=== PATIENT | male | born 1990 | race Asian ===

== ENCOUNTER 2022-09-27 15:11 | Emergency (ER) | payer OTHER ==
--- NOTE | 2022-09-27 16:17 | ED Physician Documentation ---
PD HPI SEIZURE - Stated complaint Stated Complaint: SYNCOPE - Chief complaint Chief Complaint: Neuro - History obtained from History obtained from: Patient, EMS - History of Present Illness Timing - onset: How many hours ago (1) Witnessed: Witnessed Number of seizures: Lasted minutes (3-5) Description of seizure activity: Generalized, Tonic clonic Injury during seizure: None Pain level max: 0 Pain level now: 0 Associated symptoms: No: Headache, Vision changes, Chest pain, Palpitations, Diaphoresis, Dyspnea, Nausea / vomiting History of seizures: Other (states that they thought he may have had a seizure in jun 2022, has not seen neurology yet.) Contributing factors: No: Off meds, Out of meds, Changed meds, Low blood sugar, Head injury, Substance abuse, EtOH withdrawal, Benzo withdrawal, Overdose, Fever, Sleep deprivation Treatment GLASS INSTALLER TECHNICIAN: Other (none) - Additional information Additional information: 32-year-old male presents to the emergency department with seizure activity today at work. Coworker states that he was repetitive with his words, he is on slumped in his chair, went stiff they lowered him to the ground and he began seizing for approximately 3 to 5 minutes. It sounds as if he was postictal for about 10 minutes. Currently he is back to his baseline. No injuries. No fevers. No chills. No sepsis. Denies any drug use. No caffeine use. Review of Systems Constitutional: denies: Fever, Chills Nose: denies: Rhinorrhea / runny nose, Congestion Throat: denies: Sore throat Cardiac: denies: Chest pain / pressure, Palpitations Respiratory: denies: Dyspnea, Cough, Wheezing GI: denies: Abdominal Pain, Nausea, Vomiting, Diarrhea : denies: Incontinent Skin: denies: Rash Musculoskeletal: denies: Neck pain, Back pain Neurologic: denies: Focal weakness, Numbness, Headache, Head injury, LOC PD PAST MEDICAL HISTORY - Past Medical History Past Medical History: No - Past Surgical History Past Surgical History: No - Living Situation Living Arrangement: reports: At home - Social History Does the pt have substance abuse?: No - Family History Family history: reports: Non contributory PD ED PE NORMAL - Vitals Vital signs reviewed: Yes - General General: Alert and oriented X 3, No acute distress, Well developed/nourished - HEENT HEENT: Atraumatic, PERRL, Ears normal, Moist mucous membranes, Pharynx benign - Neck Neck: Supple, no meningeal sign, No bony TTP - Cardiac Cardiac: RRR, Strong equal pulses - Respiratory Respiratory: No respiratory distress, Clear bilaterally - Abdomen Abdomen: Soft, Non tender, Non distended - Back Back: No CVA TTP, No spinal TTP - Derm Derm: Warm and dry, No rash - Extremities Extremities: No edema, No calf tenderness / cord - Neuro Neuro: Alert and oriented X 3, manager administrative services 2-12 intact, No motor deficit, No sensory deficit, Normal speech Eye Opening: Spontaneous Motor: Obeys Commands Verbal: Oriented GCS Score: 15 - Psych Psych: Normal mood, Normal affect Results - Vitals Vitals: Vital Signs - 24 hr 09/27/22 09/27/22 09/27/22 15:18 16:46 17:37 Temperature 36.4 C L Heart Rate 76 70 73 Respiratory 16 16 16 Rate Blood Pressure 127/55 L 156/93 H 156/88 H O2 Saturation 99 99 100 Oxygen O2 Source Room air - EKG (time done) 1519 EKG releavant findings:: EKG personally interpreted by author of this note. Relevant findings are: Rate: Rate (enter#) (71) Rhythm: NSR [place]: Normal Intervals: Normal ME QRS: Normal Ischemia: Normal ST segments - Labs Labs: Laboratory Tests 09/27/22 09/27/22 09/27/22 15:21 15:21 15:21 WBC 8.0 RBC 5.11 Hgb 15.5 Hct 46.7 MCV 91.4 MCH 30.3 MCHC 33.2 RDW 12.1 Plt Count 307 MPV 9.7 Neut # (Auto) 4.5 Lymph # (Auto) 3.1 [place] # (Auto) 0.3 Eos # (Auto) 0.1 Baso # (Auto) 0.0 Absolute Nucleated RBC 0.00 Nucleated RBC % 0.0 Sodium 134 L Potassium 3.8 Chloride 100 L Carbon Dioxide 20 L Anion Gap 14.0 H BUN 16 Creatinine 1.1 Estimated GFR (MDRD) 77 L Glucose 156 H Calcium 9.5 Total Bilirubin 0.7 AST 41 ALT 35 Alkaline Phosphatase 82 Total Protein 8.4 H Albumin 4.5 Globulin 3.9 Albumin/Globulin Ratio 1.2 Lipase 30 TSH 4.02 Urine Color Urine Clarity Urine pH Ur Specific [place] Urine Protein Urine Glucose (UA) Urine Ketones Urine Occult Blood Urine Nitrite Urine Bilirubin Urine Urobilinogen Ur Leukocyte Esterase Urine RBC Urine WBC Ur Squamous Epith Cells Urine Bacteria Urine Mucus Ur Microscopic Review Urine Culture Comments Salicylates < 6.0 Urine Opiates Screen Ur Oxycodone Screen Urine Methadone Screen Ur Propoxyphene Screen Acetaminophen < 10 L Ur Barbiturates Screen Ur Tricyclics Screen Ur Phencyclidine Scrn Ur Amphetamine Screen U Methamphetamines Scrn U Benzodiazepines Scrn Urine Cocaine Screen U Cannabinoids Screen Ethyl Alcohol < 5.0 09/27/22 16:39 WBC RBC Hgb Hct MCV MCH MCHC RDW Plt Count MPV Neut # (Auto) Lymph # (Auto) [place] # (Auto) Eos # (Auto) Baso # (Auto) Absolute Nucleated RBC Nucleated RBC % Sodium Potassium Chloride Carbon Dioxide Anion Gap BUN Creatinine Estimated GFR (MDRD) Glucose Calcium Total Bilirubin AST ALT Alkaline Phosphatase Total Protein Albumin Globulin Albumin/Globulin Ratio Lipase TSH Urine Color YELLOW Urine Clarity CLEAR Urine pH 6.0 Ur Specific [place] >=1.030 H Urine Protein 30 H Urine Glucose (UA) NEGATIVE Urine Ketones NEGATIVE Urine Occult Blood SMALL H Urine Nitrite NEGATIVE Urine Bilirubin NEGATIVE Urine Urobilinogen 0.2 (NORMAL) Ur Leukocyte Esterase NEGATIVE Urine RBC 0-5 Urine WBC 0-3 Ur Squamous Epith Cells RARE Squamous Urine Bacteria Rare Urine Mucus Few Strands Ur Microscopic Review INDICATED Urine Culture Comments NOT INDICATED Salicylates Urine Opiates Screen NEGATIVE Ur Oxycodone Screen NEGATIVE Urine Methadone Screen NEGATIVE Ur Propoxyphene Screen NEGATIVE Acetaminophen Ur Barbiturates Screen NEGATIVE Ur Tricyclics Screen NEGATIVE Ur Phencyclidine Scrn NEGATIVE Ur Amphetamine Screen NEGATIVE U Methamphetamines Scrn NEGATIVE U Benzodiazepines Scrn NEGATIVE Urine Cocaine Screen NEGATIVE U Cannabinoids Screen NEGATIVE Ethyl Alcohol - Rads (name of study) CT head Relevant Findings:: Final report received, See rad report PD Medical Decision Making - ED course Complexity details: reviewed results, re-evaluated patient, considered differential, d/w patient ED course: Patient with what sounds like a new onset seizure today at work. He denies any caffeine, stimulants, drugs. Head CT does not show any significant abnormalities. Very minimal hyponatremia. Urinalysis does not show any acute abnormalities. History sounds very consistent with a seizure. We [place] and neurology referral. It sounds as if he had an episode of potentially altered mental status back in June at [facility], but did not have necessarily seizure activity. Therefore we will hold off on antiepileptics at this time until he can receive his EEG and follow-up with neurology. I would consider starting antiepileptics if he has another seizure. Patient counseled regarding signs and symptoms for which I believe and urgent re-evaluation would be necessary. Patient with good understanding of and agreement to plan and is comfortable going home at this time This document was made in part using voice recognition software. While efforts are made to proofread this document, sound alike and grammatical errors may occur. Departure - Departure Disposition: Home, Self Care Clinical Impression: Seizure Condition: Good Instructions: Epilepsy Seizures Follow-Up: SHANICE Coronel [Provider Group] - Within 1 week Comments: Your head CT does not show any acute abnormalities. Your EKG does not show any acute abnormalities. Your laboratory testing shows a normal complete blood count, no significant abnormalities on your chemistries. Your urinalysis is consistent with mild dehydration, make sure you are drinking enough fluids. And your toxicology screens are negative. Based on your history today it sounds as if you had a 3 to 5-minute generalized tonic-clonic seizure. It is important [place] 2 [place]. You will need a referral to a neurologist as well as an EEG and MRI of your brain. Do not drive until released by your doctor. You should also avoid being in water that you can submerge yourself in until released by your doctor as well. Please return if you worsen Discharge Date/Time: 09/27/22 17:43
[2022-09-27 16:18] LABS: BASOPHILS % (AUTO) 0.4 %; EOSINOPHILS # (AUTO) 0.1 10^3/uL (0.0-0.7); EOSINOPHILS % (AUTO) 0.6 %; HCT - HEMATOCRIT 46.7 % (42.0-52.0); HGB - HEMOGLOBIN 15.5 g/dL (14.0-18.0); LYMPHOCYTES # (AUTO) 3.1 10^3/uL (1.5-3.5); LYMPHOCYTES % (AUTO) 38.4 %; MEAN CORPUSCULAR HEMOGLOBIN 30.3 pg (27.0-31.0); MEAN CORPUSCULAR HGB CONC 33.2 g/dL (32.0-36.0); MEAN CORPUSCULAR VOLUME 91.4 fL (80.0-94.0); MEAN PLATELET VOLUME 9.7 fL (7.4-11.4); MONOCYTES # (AUTO) 0.3 10^3/uL (0.0-1.0); MONOCYTES % (AUTO) 4.2 %; NEUTROPHILS # (AUTO) 4.5 10^3/uL (1.5-6.6); NEUTROPHILS % (AUTO) 55.9 %; PLT - PLATELET COUNT 307 10^3/uL (130-450); RED BLOOD COUNT 5.11 10^6/uL (4.70-6.10); RED CELL DISTRIBUTION WIDTH 12.1 % (12.0-15.0)
--- NOTE | 2022-09-27 16:35 | CT Report ---
PROCEDURE: HEAD WO INDICATIONS: new onset seizure TECHNIQUE: Noncontrast 4.5 mm thick angled axial sections acquired from the foramen magnum to the vertex. For r adiation dose reduction, the following was used: automated exposure control, adjustment of mA and/or kV according to patient size. COMPARISON: None. FINDINGS: Image quality: Excellent. CSF spaces: Basal cisterns are patent. No extra-axial fluid collections. Ventricles are normal in size and shape. Brain: No midline shift. No intracranial masses or hemorrhage. Payne-white matter interface is norm al. Skull and face: Calvarium and visualized facial bones are intact, without suspicious lesions. Sinuses: Visualized sinuses and mastoids are clear. IMPRESSION: No acute intracranial abnormality. Consider MRI with and without contrast for follow-up evaluation. Reviewed by: Osman Wilkinson MD on 09/27/2022 4:33 PM PDT Approved by: Osman Wilkinson MD on 09/27/2022 4:33 PM PDT Station ID: [id number]
[2022-09-27 16:42] LABS: ACETAMINOPHEN < 10 ug/mL (10-30); ALBUMIN 4.5 g/dL (3.2-5.5); ALBUMIN/GLOBULIN RATIO 1.2 (1.0-2.2); ALKALINE PHOSPHATASE 82 IU/L (42-121); ALT ALANINE AMINOTRANSFERASE 35 IU/L (10-60); AST ASPARTATE AMINOTRANSFERASE 41 IU/L (10-42); BILIRUBIN,TOTAL 0.7 mg/dL (0.2-1.0); BUN - BLOOD UREA NITROGEN 16 mg/dL (6-20); CALCIUM 9.5 mg/dL (8.5-10.3); CARBON DIOXIDE - CO2 20 mmol/L (21-32); CHLORIDE 100 mmol/L (101-111); CREATININE 1.1 mg/dL (0.6-1.2); ETOH - ETHANOL < 5.0 mg/dL; GFR - MDRD 77 (>89); GLUCOSE 156 mg/dL (70-100); LIPASE 30 U/L (22-51); POTASSIUM 3.8 mmol/L (3.5-5.0); SALICYLATE < 6.0 mg/dL; SODIUM 134 mmol/L (135-145); TOTAL PROTEIN 8.4 g/dL (6.7-8.2)
[2022-09-27 16:45] LABS: MUDS CUTOFF CONCENTRATIONS CUTOFF CONC BELOW:
[2022-09-27 16:47] LABS: BILIRUBIN,URINE NEGATIVE (NEGATIVE); GLUCOSE, URINE (UA) NEGATIVE (NEGATIVE); KETONES,URINE (UA) NEGATIVE (NEGATIVE); LEUKOCYTE ESTERASE, URINE NEGATIVE (NEGATIVE); NITRITE,URINE NEGATIVE (NEGATIVE); OCCULT BLOOD,URINE SMALL (NEGATIVE); PROTEIN,URINE 30 mg/dL (NEGATIVE); UROBILINOGEN,URINE 0.2 (NORMAL) E.U./dL (NORMAL)
[2022-09-27 16:49] LABS: CLARITY,URINE CLEAR (CLEAR)
[2022-09-27 16:57] LABS: AMPHETAMINE SCREEN,URINE NEGATIVE (NEGATIVE); BARBITURATE SCREEN,UR NEGATIVE (NEGATIVE); BENZODIAZEPINES SCREEN, URINE NEGATIVE (NEGATIVE); COCAINE SCREEN URINE NEGATIVE (NEGATIVE); METHADONE SCREEN, URINE NEGATIVE (NEGATIVE); METHAMPHETAMINES SCREEN, URINE NEGATIVE (NEGATIVE); OPIATE SCREEN, URINE NEGATIVE (NEGATIVE); OXYCODONE SCREEN, URINE NEGATIVE (NEGATIVE); PROPOXYPHENE SCREEN, URINE NEGATIVE (NEGATIVE); THC CANNABINOID SCREEN, URINE NEGATIVE (NEGATIVE); TRICYCLIC ANTIDEPRESSANT,URINE NEGATIVE (NEGATIVE)
[2022-09-27 16:59] LABS: BACTERIA,URINE Rare /HPF (None Seen); MUCUS,URINE Few Strands; RBC,URINE 0-5 /HPF (0-5); SQUAMOUS EPITHELIAL CELL,UR RARE Squamous (<= Few); WBC,URINE 0-3 /HPF (0-3)
[2022-09-27 17:38] VITALS: BP 156/88
== END 2022-09-27 17:43 | disposition home or self-care (01) ==
LOC: ED 15:11
DX: R56.9 Unspecified convulsions (principal); E86.0 Dehydration
CPT/HCPCS: 36415; 80053; 80306; 80307; 80320; 80329; 81001; 81003; 83690; 84443; 85025; 87086; 93005; 99284

== ENCOUNTER 2022-11-06 07:13 | Outpatient (CLI) | payer OTHER | END 2022-11-06 23:59 | disposition critical access hospital (66) | LOC: EMS 07:13 | DX: R56.9 Unspecified convulsions (principal) | CPT/HCPCS: A0425; A0429 ==

== ENCOUNTER 2022-11-06 07:32 | Emergency (ER) | payer OTHER ==
--- NOTE | 2022-11-06 07:54 | ED Physician Documentation ---
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 He had a seizure reportedly 2 months ago with negative ED work-up. Subsequently he was started on Keppra. Saw a neurologist last week in [place], Dr. Chandler who did a EEG that was reportedly normal and stopped his Keppra, that was about 4 days ago. Today he felt a brief rash in the back of his head and then had tonic- clonic seizure activity witnessed by his roommate with about 5 minutes of postictal period. Post seizure had a tongue laceration. He feels fine now. PD PAST MEDICAL HISTORY - Past Medical History Past Medical History: Yes Cardiovascular: Hypertension Neuro: Seizure disorder - Past Surgical History Past Surgical History: No - Present Medications Home Medications: Ambulatory Orders Medication Instructions Recorded Confirmed Levetiracetam [Keppra] 500 mg PO BID #60 tablet 11/06/22 - Allergies Allergies/Adverse Reactions: Allergies Allergy/AdvReac Type Severity Reaction Status Date / Time No Known Drug Allergies Allergy Verified 11/06/22 08:10 - Social History Does the pt smoke?: No Smoking Status: Never smoker Does the pt drink ETOH?: No Does the pt have substance abuse?: No - Immunizations Immunizations are current?: Yes PD ED PE NORMAL - Vitals Vital signs reviewed: Yes - General General: Alert and oriented X 3, No acute distress - HEENT HEENT: PERRL, EOMI, Dentition benign, Other (Abrasion/contusion to the right mid tongue) - Neck Neck: Supple, no meningeal sign, No bony TTP - Cardiac Cardiac: RRR, No murmur - Respiratory Respiratory: No respiratory distress, Clear bilaterally - Abdomen Abdomen: Non tender - Neuro Neuro: Alert and oriented X 3, youth associate 2-12 intact, No motor deficit, No sensory deficit, Normal speech Eye Opening: Spontaneous Motor: Obeys Commands Verbal: Oriented GCS Score: 15 Results - Vitals Vitals: Vital Signs - 24 hr 11/06/22 11/06/22 07:45 09:30 Temperature 36.6 C Heart Rate 81 72 Respiratory 19 19 Rate Blood Pressure 147/87 H 145/92 H O2 Saturation 98 100 Oxygen O2 Source Room air PD Medical Decision Making - ED course ED course: 32-year-old gentleman with now recurrent seizures having stopped his Keppra a few days ago on the advice of his neurologist now had recurrent seizure today. We tried for several hours to get a hold of his neurologist without any luck. He is asymptomatic here. Seems reasonable to restart his Keppra pending follow- up with his neurologist. Departure - Departure Disposition: 01 Home, Self Care Clinical Impression: Seizure Condition: Good Record reviewed to determine appropriate education?: Yes Instructions: ED Seizure Recurrent Prescriptions: Levetiracetam [Keppra] 500 mg PO BID #60 tablet Comments: As discussed, we were unable to get a hold of your neurologist today despite several phone calls. Seems reasonable to restart your Keppra pending follow-up with him. Continue to not drive until 6 months seizure-free or is it is it is advised it is safe to do so by the neurologist. Also avoid other activities that would be dangerous if you were to have a seizure such as climbing ladders, swimming, or operating heavy machinery. Please update your flight surgeon and follow-up after this ED visit as well.
[2022-11-06 09:53] VITALS: BP 145/92
[2022-11-06] MEDS: levETIRAcetam 250 MG TABLET PO STA (10:10)
== END 2022-11-06 10:14 | disposition home or self-care (01) ==
LOC: ED 07:32
DX: R56.9 Unspecified convulsions (principal); I10 Essential (primary) hypertension
CPT/HCPCS: 99283; A9270

== ENCOUNTER 2022-12-16 14:45 | Outpatient (CLI) | payer OTHER | END 2022-12-16 14:46 | disposition critical access hospital (66) | LOC: EMS 14:45 | DX: R56.9 Unspecified convulsions (principal) | CPT/HCPCS: A0425; A0429 ==

== ENCOUNTER 2022-12-16 15:04 | Emergency (ER) | payer OTHER ==
--- NOTE | 2022-12-16 15:10 | ED Physician Documentation ---
History of Present Illness - Stated complaint Stated Complaint: SEIZURE - History obtained from History obtained from: Patient, EMS - Additonal information Additional information: 32-year-old gentleman with uncontrolled seizure disorder, last seizure November 06. On that visit his neurologist had stopped his Keppra a few days before after a negative EEG. Now he has been on Keppra 5 mg twice a day. His roommates found him to have a tonic-clonic seizure today. He did bite his tongue on the right side. No other injuries. He was postictal but now feeling better. He is nauseous but declines nausea medicine. PD PAST MEDICAL HISTORY - Past Medical History Cardiovascular: Hypertension Neuro: Seizure disorder - Past Surgical History Past Surgical History: No - Present Medications Home Medications: Ambulatory Orders Medication Instructions Recorded Confirmed Levetiracetam [Keppra] 500 mg PO BID #60 tablet 11/06/22 Levetiracetam [Keppra] 1,000 mg PO BID #60 tablet 12/16/22 - Allergies Allergies/Adverse Reactions: Allergies Allergy/AdvReac Type Severity Reaction Status Date / Time No Known Drug Allergies Allergy Verified 12/16/22 15:13 - Social History Does the pt smoke?: No Smoking Status: Never smoker Does the pt drink ETOH?: No Does the pt have substance abuse?: No - Immunizations Immunizations are current?: Yes PD ED PE NORMAL - Vitals Vital signs reviewed: Yes - General General: Alert and oriented X 3, No acute distress - HEENT HEENT: PERRL, EOMI, Other (There is a large abrasion/laceration to the right side of the tongue) - Neck Neck: Supple, no meningeal sign, No bony TTP - Cardiac Cardiac: RRR, No murmur - Respiratory Respiratory: No respiratory distress, Clear bilaterally - Abdomen Abdomen: Non tender - Neuro Neuro: Alert and oriented X 3, soil 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 intact Eye Opening: Spontaneous Motor: Obeys Commands Verbal: Oriented GCS Score: 15 Results - Vitals Vitals: Vital Signs - 24 hr 12/16/22 12/16/22 15:09 16:00 Temperature 36.6 C Heart Rate 111 H 83 Respiratory 21 22 Rate Blood Pressure 133/89 H 118/81 H O2 Saturation 100 99 Oxygen O2 Source Room air - Labs Labs: Laboratory Tests 12/16/22 15:14 Sodium 135 Potassium 4.2 Chloride 101 Carbon Dioxide 23 Anion Gap 11.0 BUN 17 Creatinine 1.4 H Estimated GFR (MDRD) 58 L Glucose 103 H Calcium 9.2 PD Medical Decision Making - ED course ED course: 32-year-old gentleman with uncontrolled seizure disorder on a fairly low-dose of Keppra. He has a tongue laceration that does not require repair, otherwise appears well here. I discussed the case by phone with the on-call neurologist at [facility] who recommends doubling his Keppra to 1000 mg twice a day pending follow-up. Departure - Departure Disposition: Home, Self Care Clinical Impression: Seizure Condition: Good Record reviewed to determine appropriate education?: Yes Instructions: ED Seizure Recurrent Prescriptions: Levetiracetam [Keppra] 1,000 mg PO BID #60 tablet Comments: Today I spoke with the neurologist on-call for Dr. Song who recommends doubling your Keppra dose to 1000 twice a day. I wrote a prescription but for now you can also just take 2 of the 500 mg tablets twice a day. Follow-up with Dr. Song, next available appointment calling on Sunday for an appointment. You should still continue to refrain from activities that would be dangerous for you to see his again specifically no driving, no ladders, no swimming.
[2022-12-16 15:27] LABS: CALCIUM 9.2 mg/dL (8.5-10.3); CREATININE 1.4 mg/dL (0.6-1.2); POTASSIUM 4.2 mmol/L (3.5-5.0)
[2022-12-16 16:15] VITALS: BP 118/81
== END 2022-12-16 17:00 | disposition home or self-care (01) ==
LOC: ED 15:04
DX: R56.9 Unspecified convulsions (principal); S01.512A Laceration without foreign body of oral cavity, initial encounter; X58.XXXA Exposure to other specified factors, initial encounter; Y93.89 Activity, other specified
CPT/HCPCS: 36415; 80048; 99284

== ENCOUNTER 2023-01-17 14:33 | Outpatient (CLI) | payer OTHER | END 2023-01-17 23:59 | disposition critical access hospital (66) | LOC: EMS 14:33 | DX: R56.9 Unspecified convulsions (principal) | CPT/HCPCS: A0425; A0429 ==

== ENCOUNTER 2023-01-17 14:59 | Emergency (ER) | payer OTHER ==
--- NOTE | 2023-01-17 15:39 | ED Physician Documentation ---
PD HPI SEIZURE - Stated complaint Stated Complaint: SEIZURE - Chief complaint Chief Complaint: Neuro - History obtained from History obtained from: Patient, EMS - History of Present Illness Timing - onset: Today Witnessed: Witnessed Number of seizures: Lasted minutes (3-5) Description of seizure activity: Generalized, Tonic clonic Injury during seizure: None Pain level max: 0 Pain level now: 0 - Additional information Additional information: Patient is a 32-year-old male who presents to the emergency department after a full body tonic-clonic seizure, lasted approximately 3 to 5 minutes. 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 He was postictal but is no longer postictal. He is currently asymptomatic. He was increased to 1000 mg by mouth daily of Keppra 1 month ago. He denies any recent illnesses. Occasionally drinks alcohol. No sleep deprivation. No fevers. No cough. No chills. No vomiting. No diarrhea. No head, neck, back pain. He states he felt his typical tingling on the left side of his head before the seizure occurred. Review of Systems Constitutional: denies: Fever, Chills GI: denies: Nausea, Vomiting : denies: Dysuria Skin: denies: Rash Musculoskeletal: denies: Neck pain, Back pain Neurologic: denies: Headache PD PAST MEDICAL HISTORY - Past Medical History Past Medical History: Yes Cardiovascular: Hypertension Neuro: Seizure disorder - Past Surgical History Past Surgical History: No - Present Medications Home Medications: Ambulatory Orders Medication Instructions Recorded Confirmed Levetiracetam [Keppra] 500 mg PO BID #60 tablet 11/06/22 Levetiracetam [Keppra] 1,000 mg PO BID #60 tablet 12/16/22 - Allergies Allergies/Adverse Reactions: Allergies Allergy/AdvReac Type Severity Reaction Status Date / Time No Known Drug Allergies Allergy Verified 01/17/23 15:06 - Social History Does the pt smoke?: No Smoking Status: Never smoker Does the pt drink ETOH?: No Does the pt have substance abuse?: No - Immunizations Immunizations are current?: Yes PD ED PE NORMAL - Vitals Vital signs reviewed: Yes - General General: Alert and oriented X 3, No acute distress, Well developed/nourished - HEENT HEENT: Atraumatic, PERRL, EOMI, Moist mucous membranes - Neck Neck: Supple, no meningeal sign - Cardiac Cardiac: RRR, Strong equal pulses - Respiratory Respiratory: No respiratory distress, Clear bilaterally - Abdomen Abdomen: Soft, Non tender, Non distended - Derm Derm: Warm and dry - Extremities Extremities: No edema, No calf tenderness / cord - Neuro Neuro: Alert and oriented X 3 - Psych Psych: Normal mood, Normal affect Results - Vitals Vitals: Vital Signs - 24 hr 01/17/23 01/17/23 01/17/23 15:02 15:39 15:48 Temperature 36.7 C 36.5 C 36.7 C Heart Rate 111 H 81 Respiratory 16 20 Rate Blood Pressure 147/88 H 143/94 H O2 Saturation 96 100 Oxygen O2 Source Room air PD Medical Decision Making - ED course Complexity details: reviewed results, re-evaluated patient, considered differential, d/w patient ED course: 32-year-old male with a known seizure disorder had his Keppra increased to 1000 mg p.o. twice daily 1 month ago. This is his first seizure since that time. He is asymptomatic here. He states he has been compliant with his medication. I discussed the case with his neurologist, Dr. Song, clinic number [phone]. It is recommended the patient increase his Keppra to 1500 mg p.o. twice daily. The patient states he has enough Keppra at home to do this. He will follow-up closely with his neurologist for further care. No injuries at this time. No indication for lab testing. No recent illnesses. No sleep deprivation or trauma. Patient counseled regarding signs and symptoms for which I believe and urgent re-evaluation would be necessary. Patient with good understanding of and agreement to plan and is comfortable going home at this time This document was made in part using voice recognition software. While efforts are made to proofread this document, sound alike and grammatical errors may occur. Departure - Departure Disposition: 01 Home, Self Care Clinical Impression: Recurrent seizures Condition: Good Instructions: ED Seizure Recurrent Follow-Up: SHANICE Coronel [Provider Group] Comments: Please follow-up with Dr. Song for further care. His office number is [phone]. Please call for an urgent appointment. I did speak with him today. We will increase your Keppra to 1500 mg by mouth twice daily. Discharge Date/Time: 01/17/23 15:48
[2023-01-17 15:53] VITALS: BP 143/94
== END 2023-01-17 15:48 | disposition home or self-care (01) ==
LOC: EDUNIT# → ED 14:59
DX: G40.409 Other generalized epilepsy and epileptic syndromes, not intractable, without status epilepticus (principal)
CPT/HCPCS: 99283; 99284